=== PATIENT | female | born 1985 | race Caucasian/White ===

== ENCOUNTER → 2018-12-30 09:01 | Outpatient (CLI) | payer OTHER, SELFPAY ==
--- NOTE | 2018-12-30 | DI.US.S_ITS ---
PROCEDURE: US PELVIC COMPLETE INDICATIONS: IRREGULAR MENSES TECHNIQUE: Real-time scanning was performed of the pelvic organs, with image documentation. Additional endovaginal scanning was necessary due to incomplete visualization of the adnexal and endometrial structures by transabdominal scanning. COMPARISON: None. FINDINGS: Transabdominal scanning: Limited scanning through the kidneys shows no hydronephrosis. No pathologic free abdominal or pelvic fluid. Endovaginal scanning: Uterus: Uterus is normal in size at 8.1 x 4.9 x 6.6 cm. The endometrium measures 6.2 mm in combined thickness. Ovaries: Follicular cysts associated with the right in the left ovary with the largest measuring 1.4 cm; otherwise normal ovaries bilaterally. IMPRESSION: Multiple simple right follicular cysts. Dictated by: Aaron Manuel [facility] Interpreted: Steve Paz MD on 12/30/2018 at 10:33 Approved by: Steve Paz M.D. on 12/30/2018 at 10:58
== END ==
PROVIDERS: PCP Nurse Practitioner Family; Visit Provider Nurse Practitioner Family
DX: N92.6 Irregular menstruation, unspecified (principal); N83.01 Follicular cyst of right ovary
CPT/HCPCS: 76830; 76856